=== PATIENT | female | born 1950 | race Caucasian/White ===

== ENCOUNTER 2017-06-01 09:15 | Inpatient (IN) | payer MEDICARE ==
[~2017-06-01] VITALS: Ht 157.5 cm; Wt 98.4 kg
[~2017-06-01 09:15] MED LIST: ALBUTEROL; ASPI-496 PO; ATOR-2 PO; COMBIVENT; FLUTICASONE; FURO-93 PO; MECL-76 PO; METH750T87 PO; METO50TA82 PO; SPIRIVA; SYMBICORT
[2017-06-01] MEDS ORDERED: HYDROmorphone 1 MG/ML, 1ML ONE ×2 (10:43→13:44)
[2017-06-01] MEDS: HYDROmorphone 1 MG/ML, 1ML IVPush PRN ×2 (10:53→13:40)
[2017-06-01 11:08] LABS: HEMATOCRIT 38.6 % (34.6-47.8); HEMOGLOBIN 12.5 g/dL (11.7-16.4); WHITE BLOOD COUNT 9.9 x10^3/uL (3.4-10)
[2017-06-01 11:18] LABS: BLOOD UREA NITROGEN 25 mg/dL (7-18)
[2017-06-01] MEDS ORDERED: SODIUM CHLORIDE FLUSH 10ML SYR IVF ONE (12:00)
[2017-06-01] MEDS ORDERED: SODIUM CHLORIDE 0.9% 1,000ML IVBOLUS ONE (14:30)
[2017-06-01] MEDS: SODIUM CHLORIDE 0.9% 1,000 ML IV SCH ×2 (15:34→20:02)
[2017-06-01] MEDS ORDERED: POLYETHYLENE GLYCOL 17 GM PACKET PO PRN (16:00)
[2017-06-01] MEDS ORDERED: morphine SULFATE 10 MG/ML, 1ML IVPush PRN (16:00)
[2017-06-01] MEDS ORDERED: BISACODYL 10 MG SUPP PR PRN (16:00)
[2017-06-01] MEDS ORDERED: ENOXAPARIN 40 MG/0.4 ML SQ SCH (16:00)
[2017-06-01] MEDS ORDERED: DOCUSATE 100 MG CAPSULE PO PRN (16:00)
[2017-06-01 18:29] VITALS: BP 87/60
[2017-06-01 19:41] VITALS: BP 97/67
[2017-06-01] MEDS: LACTULOSE 10 GM/15 ML UDC PO SCH (20:03)
[2017-06-01] MEDS: HYDROmorphone 2 MG/ML, 1ML IVPush PRN (20:30)
[2017-06-02] VITALS (8 sets, daily range): BP systolic 71–101; BP diastolic 46–70
[2017-06-02] MEDS: HYDROmorphone 2 MG/ML, 1ML IVPush PRN (00:30)
[2017-06-02] MEDS: SODIUM CHLORIDE 0.9% 1,000 ML IV SCH ×5 (02:30→19:55)
[2017-06-02] MEDS: HYDROcodone/APAP 5/325 TABLET PO PRN ×3 (05:18→19:55)
[2017-06-02 06:14] LABS: ASPARTATE AMINO TRANSFERASE 33 U/L (15-37); BLOOD UREA NITROGEN 28 mg/dL (7-18)
[2017-06-02 06:41] LABS: HEMATOCRIT 31.1 % (34.6-47.8); HEMOGLOBIN 10.3 g/dL (11.7-16.4)
[2017-06-02] MEDS: SENNA/DOCUSATE TABLET PO SCH (10:00)
[2017-06-02] MEDS: LACTULOSE 10 GM/15 ML UDC PO SCH ×2 (10:00→19:55)
[2017-06-02] MEDS: ONDANSETRON 2MG/ML, 2ML IVPush PRN ×3 (12:23→20:13)
[2017-06-02] MEDS ORDERED: HYDROcodone/APAP 5/325 TABLET PO ONE (14:00)
[2017-06-02] MEDS: OMEPRAZOLE 20 MG CAPSULE.DR PO SCH ×2 (14:30→17:39)
[2017-06-02] MEDS ORDERED: POTA10TA11 PO (16:35)
[2017-06-02] MEDS ORDERED: ATOR-2 PO (16:35)
[2017-06-02] MEDS ORDERED: IPRA4AER INH (16:35)
[2017-06-02] MEDS ORDERED: FLUT1DIS5 IH (16:35)
[2017-06-02] MEDS ORDERED: MECL25TA4 PO (16:35)
[2017-06-02] MEDS ORDERED: LISI1TAB3 PO (16:35)
[2017-06-02] MEDS ORDERED: FURO20TA3 PO (16:35)
[2017-06-02] MEDS ORDERED: ALEN70TA5 PO (16:35)
[2017-06-02] MEDS ORDERED: ATORVASTATIN 80 MG TABLET ONE (19:43)
[2017-06-02] MEDS: ATORVASTATIN 80 MG TABLET PO SCH (19:55)
[2017-06-02] MEDS ORDERED: ENOXAPARIN 30 MG/0.3 ML SQ SCH (21:00)
[2017-06-02] MEDS ORDERED: ADVAIR IH SCH ×2 (22:00)
[2017-06-03 01:26] VITALS: BP 110/69
[2017-06-03] MEDS: HYDROcodone/APAP 5/325 TABLET PO PRN ×3 (02:42→23:40)
[2017-06-03 04:52] LABS: BLOOD UREA NITROGEN 27 mg/dL (7-18)
[2017-06-03 04:54] LABS: HEMOGLOBIN 9.8 g/dL (11.7-16.4)
[2017-06-03 07:29] VITALS: BP 114/66
[2017-06-03] MEDS: SODIUM CHLORIDE 0.9% 1,000 ML IV SCH ×2 (07:47→22:18)
[2017-06-03] MEDS: ADVAIR IH SCH ×2 (08:39→20:14)
[2017-06-03] MEDS: ASPIRIN 81 MG TABLET EC PO SCH (08:39)
[2017-06-03] MEDS: LACTULOSE 10 GM/15 ML UDC PO SCH ×2 (08:39→20:14)
[2017-06-03] MEDS: SENNA/DOCUSATE TABLET PO SCH (08:39)
[2017-06-03] MEDS: OMEPRAZOLE 20 MG CAPSULE.DR PO SCH ×2 (08:39→20:14)
[2017-06-03 13:39] VITALS: BP 109/68
[2017-06-03 20:00] VITALS: BP 93/57
[2017-06-03] MEDS: ATORVASTATIN 80 MG TABLET PO SCH (20:15)
[2017-06-03] MEDS: ENOXAPARIN 40 MG/0.4 ML SQ SCH (20:20)
[2017-06-03 22:30] VITALS: BP 104/68
[2017-06-04 02:00] VITALS: BP 130/85
[2017-06-04] MEDS: SODIUM CHLORIDE 0.9% 1,000 ML IV SCH (05:14)
[2017-06-04] MEDS: HYDROcodone/APAP 5/325 TABLET PO PRN ×3 (05:14→21:49)
[2017-06-04 05:44] LABS: BLOOD UREA NITROGEN 12 mg/dL (7-18)
[2017-06-04 05:58] LABS: HEMATOCRIT 26.8 % (34.6-47.8); HEMOGLOBIN 8.9 g/dL (11.7-16.4); WHITE BLOOD COUNT 4.5 x10^3/uL (3.4-10)
[2017-06-04] MEDS: SENNA/DOCUSATE TABLET PO SCH (08:04)
[2017-06-04] MEDS: LACTULOSE 10 GM/15 ML UDC PO SCH ×2 (08:04→21:54)
[2017-06-04] MEDS: ASPIRIN 81 MG TABLET EC PO SCH (08:04)
[2017-06-04] MEDS: OMEPRAZOLE 20 MG CAPSULE.DR PO SCH ×2 (08:04→21:49)
[2017-06-04] MEDS: ADVAIR IH SCH ×2 (08:05→21:49)
[2017-06-04 08:11] VITALS: BP 109/74
[2017-06-04 14:53] VITALS: BP 114/68
[2017-06-04 20:00] VITALS: BP_SYST 115; BP_SYST 138; BP_DIAS 78; BP_DIAS 87
[2017-06-04] MEDS: ENOXAPARIN 40 MG/0.4 ML SQ SCH (21:49)
[2017-06-04] MEDS: ATORVASTATIN 80 MG TABLET PO SCH (21:49)
[2017-06-05 02:00] VITALS: BP 108/68
[2017-06-05 07:08] VITALS: BP 120/75
[2017-06-05] MEDS: LACTULOSE 10 GM/15 ML UDC PO SCH (08:18)
[2017-06-05] MEDS: ASPIRIN 81 MG TABLET EC PO SCH (08:19)
[2017-06-05] MEDS: OMEPRAZOLE 20 MG CAPSULE.DR PO SCH (08:19)
[2017-06-05] MEDS: SENNA/DOCUSATE TABLET PO SCH (08:19)
[2017-06-05] MEDS: ADVAIR IH SCH (08:19)
[2017-06-05] MEDS: HYDROcodone/APAP 5/325 TABLET PO PRN ×2 (08:19→16:43)
[2017-06-05 13:49] VITALS: BP 133/83
== END 2017-06-05 19:29 | disposition home health service (06) | DRG 562 ==
LOC: ED 10:04 → EDIP 14:04 → 4EST 17:54
PROVIDERS: ADMIT Hospitalist; ATTEND Hospitalist
DX: S42.351A Displaced comminuted fracture of shaft of humerus, right arm, initial encounter for closed fracture (principal); N17.0 Acute kidney failure with tubular necrosis; E46 Unspecified protein-calorie malnutrition; J96.10 Chronic respiratory failure, unspecified whether with hypoxia or hypercapnia; I95.9 Hypotension, unspecified; J44.9 Chronic obstructive pulmonary disease, unspecified; Z99.81 Dependence on supplemental oxygen; W01.0XXA Fall on same level from slipping, tripping and stumbling without subsequent striking against object, initial encounter; D64.9 Anemia, unspecified; E86.0 Dehydration; E86.1 Hypovolemia; G89.29 Other chronic pain; I10 Essential (primary) hypertension; I25.10 Atherosclerotic heart disease of native coronary artery without angina pectoris; M17.11 Unilateral primary osteoarthritis, right knee; M54.9 Dorsalgia, unspecified; S80.211A Abrasion, right knee, initial encounter; K59.00 Constipation, unspecified; I25.2 Old myocardial infarction; Z82.49 Family history of ischemic heart disease and other diseases of the circulatory system; Z68.39 Body mass index [BMI] 39.0-39.9, adult; Z86.711 Personal history of pulmonary embolism; Z86.718 Personal history of other venous thrombosis and embolism; Z87.891 Personal history of nicotine dependence; Z95.5 Presence of coronary angioplasty implant and graft; Z98.51 Tubal ligation status; Y92.89 Other specified places as the place of occurrence of the external cause; Y99.8 Other external cause status; Y93.K1 Activity, walking an animal
CPT/HCPCS: 36415; 70450; 80048; 80053; 80061; 82040; 83735; 84100; 85025; 96374; J1170; J1650; J2405; J7030

== ENCOUNTER → 2017-11-01 | Outpatient (CLI) | payer MEDICARE ==
[~2017-11-01] MED LIST changes: +ALEN70TA5 PO; +FLUT1DIS5 IH; +FURO20TA3 PO; +IPRA4AER INH; +LISI1TAB3 PO; +MECL25TA4 PO; +POTA10TA11 PO
== END | disposition home or self-care (01) ==
LOC: CFH 14:22
PROVIDERS: ATTEND Internal Medicine
DX: K44.9 Diaphragmatic hernia without obstruction or gangrene (principal); J44.1 Chronic obstructive pulmonary disease with (acute) exacerbation; J06.9 Acute upper respiratory infection, unspecified
CPT/HCPCS: 71046

== ENCOUNTER → 2018-06-20 | Outpatient (CLI) | payer MEDICARE ==
[2018-06-20 16:04] LABS: CHLORIDE 108 mmol/L (98-107)
[2018-06-20 16:12] LABS: ALANINE AMINOTRANSFERASE 29 U/L (12-78); ALBUMIN 3.6 g/dL (3.4-5.0); ALKALINE PHOSPHATASE 76 U/L (45-117); ANION GAP 8 mmol/L (5-15); BILIRUBIN,TOTAL 0.6 mg/dL (0.2-1.0); CALCIUM 9.2 mg/dL (8.5-10.1); CHOL/HDL RATIO 3.5; CHOLESTEROL, TOTAL 235 mg/dL (140-239); CREATININE 0.93 mg/dL (0.55-1.02); HDL CHOL % 29 % (28-40); HDL CHOLESTEROL (DIRECT) 67 mg/dL (40-60); LDL CHOLESTEROL,CALCULATED 143 mg/dL (54-169); LDL/HDL RATIO 2.1 (0.5-3.0); TOTAL PROTEIN 7.8 g/dL (6.4-8.2); TRIGLYCERIDES 125 mg/dL (50-200); VLDL CHOLESTEROL 25 mg/dL (0-25)
== END | disposition home or self-care (01) ==
LOC: LAB 13:24
PROVIDERS: ATTEND Internal Medicine
DX: E78.5 Hyperlipidemia, unspecified (principal); I10 Essential (primary) hypertension; E55.9 Vitamin D deficiency, unspecified
CPT/HCPCS: 36415; 80053; 80061; 82306; 83721

== ENCOUNTER 2018-08-06 21:38 | Emergency (ER) | payer MEDICARE ==
[~2018-08-06] VITALS: Ht 157.5 cm; Wt 84.8 kg
[~2018-08-06 21:38] MED LIST changes: -ALEN70TA5 PO; +ALEN70TA6 PO
--- NOTE | 2018-08-06 22:05 | NUR ---
PT. C/O RUQ ABD PAIN ALL DAY TODAY. DENIES N/V/D. DOES C/O CONSTIPATION "ONLY A SMALL HARD PIECE" TODAY. TOOK MIRILAX TODAY. PT. REPORTS PAIN RADIATES TO BACK ON RIGHT SIDE WELL. NO CVA TENDERNESS. PT. PLACED ON CONTINUOUS PULSE OX ABD B/P MONITORS. CALL LIGHT IN REACH. FAIMLY AT BS FOR SUPPORT. AWAITING PROVIDER EVAL.
--- NOTE | 2018-08-06 22:07 | NUR ---
PT. AWARE OF NEED FOR UA; UNABLE TO PROVIDE AT THIS TIME.
--- NOTE | 2018-08-06 22:14 | NUR ---
DR. GALDAMEZ AT BS TO LARISSA PT. AND DISCUSS POC.
[2018-08-06 22:58] LABS: BASOPHILS # (AUTO) 0.05 x10^3/uL (0-0.1); BASOPHILS % (AUTO) 1 % (0-1); EOSINOPHILS # (AUTO) 0.05 x10^3/uL (0-0.4); EOSINOPHILS % (AUTO) 1 % (1-7); LYMPHOCYTES # (AUTO) 2.23 x10^3/uL (1-3.4); LYMPHOCYTES % (AUTO) 26 % (22-44); MD NO; MEAN CORPUSCULAR HEMOGLOBIN 32.6 pg (27.0-34.8); MEAN CORPUSCULAR VOLUME 98.8 fL (80-100); MEAN PLATELET VOLUME 10.2 fL (7.4-10.4); MONOCYTES # (AUTO) 1.09 x10^3/uL (0.2-0.8); MONOCYTES % (AUTO) 13 % (2-9); NEUTROPHILS # (AUTO) 5.05 x10^3/uL (1.8-6.8); NEUTROPHILS % (AUTO) 60 % (42-75); PLATELET COUNT 185 x10^3/uL (130-400); RED BLOOD COUNT 3.45 x10^6/uL (3.82-5.3); RED CELL DISTRIBUTION WIDTH 15.4 % (9.6-15.2)
[2018-08-06] MEDS ORDERED: OMNIPAQUE 350 MG/ML, 100ML BOTTLE ONE (23:00)
--- NOTE | 2018-08-06 23:02 | NUR ---
THIS RN HAD 2 UNSUCCESSFUL ATTEMPTS AT IV ACCESS; IV ESTABLISHED BY FRANKIE ALARCON.
[2018-08-06 23:09] LABS: ALANINE AMINOTRANSFERASE 26 U/L (12-78); ALBUMIN 3.3 g/dL (3.4-5.0); ANION GAP 6 mmol/L (5-15); CALCIUM 8.6 mg/dL (8.5-10.1); CHLORIDE 108 mmol/L (98-107); CREATININE 0.97 mg/dL (0.55-1.02)
--- NOTE | 2018-08-06 23:10 | NUR ---
PT. AMBULATORY TO BR WITH CANE TO PROVIDE URINE SAMPLE.
[2018-08-06 23:14] LABS: ALKALINE PHOSPHATASE 83 U/L (45-117); BILIRUBIN,TOTAL 0.6 mg/dL (0.2-1.0); TOTAL PROTEIN 7.4 g/dL (6.4-8.2); TROPONIN I < 0.015 ng/mL (0.000-0.045)
--- NOTE | 2018-08-06 23:23 | NUR ---
URINE SAMPLE COLLECTED AND SENT TO LAB. PT. AMBULATORY BACK TO ROOM WITH MILD SOB REPORTED WHEN BACK TO [facility] WITH FAST RECOVERY. PT. WAS PLACED BACK ON O2 AT 2L VIA NC TO [place] O2 ABOVE 9%. PT. BACK TO [facility]; ALL MONITORS REPLACED. CALL LIGHT IN REACH. SAFETY MEASURS OBERVED. PT. AWAITING CTA. SON REMAINS AT BS.
[2018-08-06 23:45] LABS: MICROSCOPIC AUTO
[2018-08-06 23:46] LABS: CULTURE INDICATED? YES
--- NOTE | 2018-08-07 00:12 | NUR ---
PT. UNHOOKED FROM MONITORS AND AMBULATORY TO BR WITH CANE. PT. CHART UP FOR RECHEK BY ERMPatricia.
[2018-08-07 00:14] VITALS: BP 113/64
--- NOTE | 2018-08-07 00:27 | NUR ---
DR. GALDAMEZ AT BS TO DISCUSS POC WITH PT. AND SON AT BS.
--- NOTE | 2018-08-07 00:28 | NUR ---
MONITORS WERE RE-APPLIED WHEN PT. WAS BACK TO ROOM FROM BR.
--- NOTE | 2018-08-07 00:56 | NUR ---
TASK RN: DC EDUCATION PROVIDED, PT DEMONSTRATES UNDERSTANDING. IV DC'D. PT AMBULATED STEADILY TO DC WITH RN AND SO. SO TO TRANSPORT PT HOME.
== END 2018-08-07 00:58 | disposition home or self-care (01) ==
LOC: ED 23:27
DX: N30.00 Acute cystitis without hematuria (principal); R07.89 Other chest pain; I25.10 Atherosclerotic heart disease of native coronary artery without angina pectoris; I10 Essential (primary) hypertension; I25.2 Old myocardial infarction; J44.9 Chronic obstructive pulmonary disease, unspecified
CPT/HCPCS: 36415; 71275; 80053; 81001; 83690; 84484; 85025; 87077; 87086; 93005; 99284; Q9967; 87186

== ENCOUNTER 2019-11-10 10:04 | Emergency (ER) | payer MEDICARE, MEDICAID ==
[~2019-11-10 10:04] MED LIST changes: +LISI1TAB23 PO; -LISI1TAB3 PO; +MECL-101 PO; -MECL25TA4 PO
--- NOTE | 2019-11-10 10:07 | NUR ---
Code Neuro called @ 09:56 after [facility] Pre-alert. Neurology called on patients arrival to ED @ 10:07. Dr. Villaseñor returned call @ 10:[address] Keen.
--- NOTE | 2019-11-10 10:22 | NUR ---
TASK RN NOTE: PT ARRIVED VIA AMBULANCE, CODE NEURO CALLED AT [phone] (PRIOR TO PATIENT ARRIVAL) , PT ARRIVED AT 1007. 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 REPORT RECEIVED FROM EMS BY PRIMARY RN EMMY AND THIS TASK RN. PER EMS, PT'S LAST KNOWN NORMAL WAS 0900 THIS AM. AT 0900 THIS AM, PT SUSTAINED GLF AT HOME, PT'S SON STATES "IT LOOKED LIKE HER LEGS GAVE OUT" PER EMS PT HAD NO HEAD INJURY OR LOC. AFTER FALL PT WAS ALTERED, DEMONSTRATING INAPPROPRIATE AND SLURRED SPEECH, EXHIBITING RIGHT SIDED WEAKNESS. 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
--- NOTE | 2019-11-10 10:26 | NUR ---
PT BACK FROM CT TO TR04.
[2019-11-10] MEDS ORDERED: ALTEPLASE 1 MG/ML, 100ML ONE (10:38)
[2019-11-10] MEDS ORDERED: NEOSPORIN OINT. PKT 1 PACKET ONE (10:38)
[2019-11-10] MEDS ORDERED: DIPH,PERTUSS(ACELL),TET VAC/PF 0.5 ML IM-VACC ONE (10:41)
--- NOTE | 2019-11-10 10:48 | NUR ---
TELENEURO CONSULT IN PROGRESS WITH MD DHILLON, PRIMARY RN AT BEDSIDE. ALL MONITORS IN PLACE. EKG TAKEN ON ARRIVAL TO TR FROM CT BY EDT. FSBS 126 AT THIS TIME. PT'S SPEECH IMPROVED AT THIS TIME, PT CONVERSING WITH MD DHILLON.
[2019-11-10] MEDS ORDERED: OMNIPAQUE 350 MG/ML, 75ML BOTTLE ONE (10:50)
[2019-11-10 10:54] LABS: BASOPHILS # (AUTO) 0.02 x10^3/uL (0-0.1); BASOPHILS % (AUTO) 0 % (0-1); EOSINOPHILS # (AUTO) 0.11 x10^3/uL (0-0.4); EOSINOPHILS % (AUTO) 2 % (1-7); INTERNATIONAL NORMALIZED RATIO 0.95 (0.93-1.1); LYMPHOCYTES % (AUTO) 29 % (22-44); MD NO; MEAN CORPUSCULAR HEMOGLOBIN 32.8 pg (27.0-34.8); MEAN CORPUSCULAR VOLUME 102.4 fL (80-100); MEAN PLATELET VOLUME 10.4 fL (7.4-10.4); MONOCYTES # (AUTO) 0.51 x10^3/uL (0.2-0.8); MONOCYTES % (AUTO) 9 % (2-9); NEUTROPHILS # (AUTO) 3.64 x10^3/uL (1.8-6.8); NEUTROPHILS % (AUTO) 61 % (42-75); PLATELET COUNT 151 x10^3/uL (130-400); PROTHROMBIN TIME 10.1 Seconds (9.6-11.5); RED BLOOD COUNT 3.26 x10^6/uL (3.82-5.3); RED CELL DISTRIBUTION WIDTH 15.4 % (9.6-15.2)
--- NOTE | 2019-11-10 11:08 | NUR ---
WHEN PT ARRIVED, ONLY ABLE TO SAY "YES" AND HAD RANDOM/NON-PURPOSEFUL MOVEMENT WITH RT EXTREMITIES. NOW PT ABLE TO DISCUSS MED HX, SYMPTOMS AND RECALL EVENTS OF THIS MORNING, INCLUDING HER FALL. PT STILL HAS DIFFICULTY PRODUCING SOME WORDS, AND PHONE NUMBERS.
--- NOTE | 2019-11-10 11:11 | NUR ---
PT C/O RT SIDED CP, RADIATING TO BACK. EKG REPEATED AND GIVEN TO DR BENITEZ.
--- NOTE | 2019-11-10 11:20 | NUR ---
ERMD AWARE PT BACK TO [facility], NEURO AWARE. AWAITING FURTHER ORDERS.
--- NOTE | 2019-11-10 11:21 | NUR ---
DR BENITEZ AND DR SHEFFIELD AWARE OF PT'S SKIN TEAR. BANDAGE IN PLACE, TDAP ADMIN.
--- NOTE | 2019-11-10 11:28 | NUR ---
PLAN FOR TPA AND TRANSPORT TO [facility]. AWAITING ORDER VERIFICATION FROM PHARMACY. PT AWARE OF PLAN. ERMD TO COME CONSENT.
[2019-11-10] MEDS ORDERED: ALTEPLASE IV ONE ×3 (11:30→12:00)
--- NOTE | 2019-11-10 11:43 | NUR ---
PT HAS BEGUN SPEAKING UNDERSTANDABLY, WITH 2-3 WORD SENTENCES. KARMEN RN AT BEDSIDE FOR SECOND RN VERIFICATION OF TPA ADMINISTRATION. PT HAS SIGNED CONSENT. USED PAPER AND PENCIL TO VERIFY PT'S UNDERSTANDING OF PLAN FOR TRANSPORT FOR NEURO TO REMOVE CLOT.
--- NOTE | 2019-11-10 12:06 | NUR ---
REPORT TO TUNG WARE RN.
--- NOTE | 2019-11-10 12:10 | NUR ---
PLEASE REFER TO TPA FLOWSHEET FOR VITALS.
[2019-11-10 12:26] VITALS: BP 112/62
[2019-11-10 12:29] LABS: TROPONIN I < 0.015 ng/mL (0.000-0.045)
[2019-11-10] MEDS ORDERED: DIPH,PERTUSS(ACELL),TET VAC/PF NC IM-VACC ONE (12:30)
[2019-11-10] MEDS ORDERED: MORPHINE SULFATE 4 MG/ML, 1ML IVPush PRN (12:30)
== END 2019-11-10 15:40 | disposition short-term general hospital (02) ==
LOC: ED 10:47
DX: I63.9 Cerebral infarction, unspecified (principal); R27.0 Ataxia, unspecified; R07.2 Precordial pain; R29.702 NIHSS score 2; I10 Essential (primary) hypertension; I48.91 Unspecified atrial fibrillation
CPT/HCPCS: 36415; 37195; 70450; 70496; 70498; 80047; 82962; 84484; 85025; 85610; 85730; 90471; 90715; 93005; 99291; J2997; Q9967

== ENCOUNTER → 2020-08-04 | Outpatient (CLI) | payer MEDICARE, MEDICAID ==
[~2020-08-04] MED LIST changes: -ALEN70TA6 PO; +ALEN70TA77 PO; +OMNIPAQUE 350 MG/ML, 75ML BOTTLE ONE
== END | disposition home or self-care (01) ==
LOC: CFH 13:59
PROVIDERS: ATTEND Internal Medicine
DX: R91.8 Other nonspecific abnormal finding of lung field (principal); K44.9 Diaphragmatic hernia without obstruction or gangrene
CPT/HCPCS: 71260; 82565; Q9967

== ENCOUNTER → 2020-09-18 | Outpatient (CLI) | payer MEDICARE, MEDICAID ==
[~2020-09-18] MED LIST changes: -OMNIPAQUE 350 MG/ML, 75ML BOTTLE ONE
[2020-09-18 15:03] LABS: BASOPHILS % (AUTO) 1 % (0-1); EOSINOPHILS % (AUTO) 1 % (1-7); LYMPHOCYTES % (AUTO) 34 % (22-44); MEAN CORPUSCULAR HEMOGLOBIN 34.2 pg (27.0-34.8); MEAN CORPUSCULAR HGB CONC 32.6 g/dL (32.4-35.8); MONOCYTES % (AUTO) 10 % (2-9); NEUTROPHILS % (AUTO) 55 % (42-75); PLATELET COUNT 187 x10^3/uL (130-400); RED CELL DISTRIBUTION WIDTH 14.4 % (9.6-15.2)
[2020-09-18 15:04] LABS: MD NO
[2020-09-18 15:28] LABS: FOLATE LEVEL 10.9 ng/mL (3.1-17.5)
== END | disposition home or self-care (01) ==
LOC: LAB 13:57
PROVIDERS: ATTEND Internal Medicine
DX: I10 Essential (primary) hypertension (principal); I25.10 Atherosclerotic heart disease of native coronary artery without angina pectoris; E78.00 Pure hypercholesterolemia, unspecified; I25.2 Old myocardial infarction; D64.9 Anemia, unspecified; I63.9 Cerebral infarction, unspecified; J44.9 Chronic obstructive pulmonary disease, unspecified; K21.9 Gastro-esophageal reflux disease without esophagitis; K59.00 Constipation, unspecified; M81.0 Age-related osteoporosis without current pathological fracture; R19.5 Other fecal abnormalities
CPT/HCPCS: 36415; 82607; 82728; 82746; 83540; 83550; 85025

== ENCOUNTER → 2020-10-19 | Outpatient (CLI) | payer MEDICARE | END | disposition home or self-care (01) | LOC: CFH 07:19 | PROVIDERS: ATTEND Internal Medicine | DX: R06.02 Shortness of breath (principal); K44.9 Diaphragmatic hernia without obstruction or gangrene | CPT/HCPCS: 71046 ==

== ENCOUNTER 2020-10-25 07:20 | Day surgery (SDC) | payer MEDICARE, MEDICAID ==
[~2020-10-25] VITALS: Ht 152.4 cm; Wt 68.2 kg
[2020-10-25 07:57] VITALS: BP 138/76
[2020-10-25] MEDS ORDERED: FLUMAZENIL 0.1 MG/1 ML, 5ML ONE (08:37)
[2020-10-25] MEDS ORDERED: FENTANYL PF 100 MCG/2ML ONE (08:37)
[2020-10-25] MEDS ORDERED: MIDAZOLAM 1 MG/ML, 5ML ONE ×2 (08:37)
[2020-10-25] MEDS ORDERED: NALOXONE 1 MG/ML, 2ML ONE (08:38)
== END 2020-10-25 11:46 | disposition home or self-care (01) ==
LOC: OUT 07:20
PROVIDERS: ATTEND Internal Medicine
DX: R91.1 Solitary pulmonary nodule (principal); J44.9 Chronic obstructive pulmonary disease, unspecified; I10 Essential (primary) hypertension; I25.2 Old myocardial infarction; E78.5 Hyperlipidemia, unspecified; Z79.82 Long term (current) use of aspirin; Z87.891 Personal history of nicotine dependence; Z88.8 Allergy status to other drugs, medicaments and biological substances; Z95.5 Presence of coronary angioplasty implant and graft; Z86.711 Personal history of pulmonary embolism; Z86.718 Personal history of other venous thrombosis and embolism
CPT/HCPCS: 32408; 71045; 88305; 99156; J2250; J3010; 77012; 99157; J2310

== ENCOUNTER 2021-03-18 06:43 | Day surgery (SDC) | payer MEDICARE, MEDICAID ==
[~2021-03-18] VITALS: Ht 152.4 cm; Wt 68.2 kg
[2021-03-18] MEDS ORDERED: LIDOCAINE 2%, 20ML ONE (06:53)
== END 2021-03-18 09:03 | disposition home or self-care (01) ==
LOC: CACL 06:43
PROVIDERS: ATTEND Internal Medicine Cardiovascular Disease
DX: I63.9 Cerebral infarction, unspecified (principal); I10 Essential (primary) hypertension; I27.20 Pulmonary hypertension, unspecified; I25.5 Ischemic cardiomyopathy; G47.30 Sleep apnea, unspecified; E78.2 Mixed hyperlipidemia; Z79.82 Long term (current) use of aspirin; Z79.891 Long term (current) use of opiate analgesic; Z79.899 Other long term (current) drug therapy; Z86.73 Personal history of transient ischemic attack (TIA), and cerebral infarction without residual deficits; Z88.8 Allergy status to other drugs, medicaments and biological substances
CPT/HCPCS: 33285; C1764